=== PATIENT | female | born 1960 | race Caucasian/White ===

== ENCOUNTER 2016-07-22 12:34 | Emergency (ER) | payer BC ==
[2016-07-22 12:55] VITALS: BP 160/92; PULSE 79; RESP 16; TEMP 98.3; O2SAT 100
[2016-07-22 13:51] VITALS: BP 180/100; PULSE 72; RESP 18; O2SAT 99
[2016-07-22] MEDS ORDERED: AUGM875T PO (13:51)
[2016-07-22] MEDS ORDERED: ASPI325T PO (13:51)
[2016-07-22] MEDS ORDERED: PANT20 PO (13:51)
[2016-07-22] MEDS ORDERED: REME15TA PO (13:51)
[2016-07-22] MEDS ORDERED: ATOM40 PO (13:51)
[2016-07-22] MEDS ORDERED: KETOROLAC TROMETHAMINE 60 MG/2 ML (IM) VIAL IM ONE (14:15)
--- NOTE | 2016-07-22 14:19 | PD ---
HPI Chief Complaint: Oral / Dental Pain or Problem Time Seen by Provider: 14:01 Travel History International Travel<30 days: No Contact w/Intl Traveler<30days: No Traveled to known affect area: No History of Present Illness HPI 56yo F with PMH of CAD s/p cardiac stent x1 presents to the ED with c/o pain in her gums and jaw for 4-5 days. Pt states she has a dentist she follows with and has multiple dental issues that she is deciding on whether to do root canal or not. He had called in augmentin for her but did not call in a pain medication. States pain in gums worst when she eats things that are too cold or too hot. Pt states that she is worried because last time she had a heart attack, it also started with jaw pain that feels exactly like this time. Pt was informed that she should have gone to the hospital earlier. Denies any fever, chest pain, sob, n/v, abdominal pain, focal weakness or numbness. PFSH Past Medical History Anxiety: Yes Depression: Yes Cardiac Catheterization: Yes Cardiovascular Problems: Yes (SD) Coronary Artery Disease: Yes Diminished Hearing: No GERD: Yes Immunizations Current: Yes Myocardial Infarction: Yes Tetanus Vaccination: Unknown Influenza Vaccination: No ?: Not LMP: ABLATION Menopausal: Yes Past Surgical History Coronary Stent: Yes (1 STENT) Gynecologic Surgery: Yes (ABLATION) Social History Alcohol Use: Yes (RARE) Tobacco Use: Yes (1 PK) Substance Use: No Allergies-Medications (Allergen,Severity, Reaction): Coded Allergies: No Known Allergies (Unverified , 07/22/16) Reported Meds & Prescriptions Reported Meds & Active Scripts Active Reported Aspirin 325 Mg Tab 325 Mg PO ONCE Protonix (Pantoprazole Sodium) 20 Mg Tab 20 Mg PO DAILY Strattera (Atomoxetine HCl) 40 Mg Cap 40 Mg PO DAILY Remeron (Mirtazapine) 15 Mg Tab 15 Mg PO HS Augmentin (Amoxicillin-Clavulanate) 875-125 mg Tab 875 Mg PO BID not for use in CrCl <30 ml/min. Review of Systems Except as stated in HPI: all other systems reviewed are Neg Physical Exam Narrative GENERAL: 56yo F not in distress. SKIN: Warm and dry. HEAD: Atraumatic. Normocephalic. EYES: Pupils equal and round. No scleral icterus. No injection or drainage. ENT: Throat: Clear. +TTP superior and inferior gingiva. No periapical abscess palpated. NECK: Trachea midline. No JVD. CARDIOVASCULAR: Regular rate and rhythm. No murmur appreciated. RESPIRATORY: No accessory muscle use. Clear to auscultation. Breath sounds equal bilaterally. GASTROINTESTINAL: Abdomen soft, non-tender, nondistended. MUSCULOSKELETAL: No obvious deformities. No clubbing. No cyanosis. No edema. NEUROLOGICAL: Awake and alert. No obvious cranial nerve deficits. Motor grossly within normal limits. Normal speech. PSYCHIATRIC: Appropriate mood and affect; insight and judgment normal. Data Data Last Documented VS Vital Signs Date Time Temp Pulse Resp B/P Pulse Ox O2 Delivery O2 Flow Rate FiO2 07/22/16 15:03 88 18 182/98 100 Room Air 07/22/16 12:55 98.3 Orders Ketorolac Inj (Toradol Inj) (07/22/16 14:15) Troponin I (07/22/16 14:13) Electrocardiogram (07/22/16 12:47) Labs Laboratory Tests Test 07/22/16 14:20 Troponin I LESS THAN 0.02 NG/ML [facility] Medical Decision Making Medical Screen Exam Complete: Yes Emergency Medical Condition: Yes Interpretation(s) EKG: NSR 79bpm. Normal axis. Q wave III. No ST segment elevation or depression. Laboratory Tests Test 07/22/16 14:20 Troponin I LESS THAN 0.02 NG/ML (0.02-0.05) Differential Diagnosis Dental pain vs. gingivitis vs. atypical ACS Narrative Course 56yo F with pain in her gums for 4 days. Pt has no chest pain or sob. However , given her history, I did obtain a troponin which is negative. With normal EKG and negative cardiac enzyme, I feel that pt can follow up with her PMD as outpatient. Strict return precautions given. Pt given toradol 30mg IM which relieved her pain. Pt has a dentist that she follows up with. Diagnosis Primary Impression: Pain in gums Patient Instructions: General Instructions Departure Forms: Tests/Procedures Additional Instructions: Please follow up with your PMD in 3-7 days. Please follow up with your dentist in 1-2 days. Return to the ED if you have any chest pain, sob, nausea, sweating or other concerning symptoms. Med/Other Pt SpecificInfo: Prescription(s) given Scripts Ibuprofen 400 Mg [id number] Mg PO Q6H PRN (PAIN SCALE 1 TO 4) #20 TAB Ref 0 Prov:Steph Rosas DO 07/22/16 Disposition: 01 DISCHARGE HOME Condition: Stable Steph Rosas DO Jul 22, 2016 14:19
[2016-07-22 15:03] VITALS: BP 182/98; PULSE 88; RESP 18; O2SAT 100
[2016-07-22] MEDS ORDERED: IBUP400T20 PO (15:28)
--- NOTE | 2016-07-23 17:14 | EKG ---
Date Performed: 07/22/2016 Time Performed: 12:47:54 PTAGE: 56 years EKG: Sinus rhythm Normal ECG NO PREVIOUS TRACING DOCTOR: Precious Bailey Interpretating Date/Time 07/23/2016 17:14:19
== END 2016-07-22 15:40 | disposition home or self-care (01) ==
LOC: PHED 12:34
DX: K06.8 Other specified disorders of gingiva and edentulous alveolar ridge (principal); F41.8 Other specified anxiety disorders; I25.2 Old myocardial infarction; I25.10 Atherosclerotic heart disease of native coronary artery without angina pectoris; F17.210 Nicotine dependence, cigarettes, uncomplicated
CPT/HCPCS: 84484; 93005; 96372; 99283; J1885